=== PATIENT | male | born 1970 | race American Indian/Alaskan Native ===

== ENCOUNTER 2016-10-22 19:05 | Observation (INO) | payer SELFPAY ==
[2016-10-22 20:04] LABS: Eosinophils % (Auto) 1.3 % (0.0-4.3); Hematocrit 39.9 % (35.5-45.6); Hemoglobin 12.9 gm/dl (11.8-15.2); Mean Corpuscular HGB Conc 32 % (32-34); Mean Corpuscular Hemoglobin 27 pg (28-32); Mean Corpuscular Volume 84 fl (84-94); Platelet Count 121 K/mm3 (140-440); Red Blood Count 4.76 M/mm3 (3.65-5.03); Red Cell Distribution Width 15.5 % (13.2-15.2); White Blood Count 6.6 K/mm3 (4.5-11.0)
--- NOTE | 2016-10-22 20:16 | Emergency Department Report ---
ED Chest Pain HPI - General Chief Complaint: Chest Pain Stated Complaint: CHEST PAIN Time Seen by Provider: 10/22/16 20:00 Source: patient, EMS Mode of arrival: Stretcher Limitations: Altered Mental Status - History of Present Illness Initial Comments: Patient is a 46-year-old male with a history of hypertension and asthma and seizure disorder who presents with EMS for chest pain. Patient reports at around 5:30 PM tonight he was sitting and having some intermittent in sharp chest pain which is now dull in character. Patient reports he has had this in the past the last episode was one week ago which resolved on its own. Patient has not seen any provider for this pain. Patient has had a stress test 2-3 years ago but is unable to results of the stress test. Patient does report he had drank 5 beers today and has not taken any of his medications. Otherwise no fevers, headaches, chills, diaphoresis, neck pain, arm pain, shortness of breath , abdominal pain, leg pain, recent travel history, DVT, PE, hemoptysis, trauma, or sick contacts. Patient also reports he cannot have aspirin because it causes seizures patient will not receive aspirin MD Complaint: chest pain -: hour(s) (3 hours) Onset: during rest Pain Location: substernal Pain Radiation: none Severity: moderate Quality: dull Consistency: intermittent Improves With: nothing Worsens With: movement - Related Data On Oral Contraceptives: No (n/a) Allergies Allergy/AdvReac Type Severity Reaction Status Date / Time aspirin Allergy Seizure Verified 10/22/16 19:41 ISSAC score - Issac Score Age > 65: (0) No Aspirin use within the Past 7 Days: (0) No 3 or more CAD Risk Factors: (1) Yes 2 or more Angina events in past 24 hrs: (0) No Known CAD with more than 50% Stenosis: (0) No Elevated Cardiac Markers: (0) No ST Deviation Greater than 0.5mm: (0) No ISSAC Score: 1 ED Review of Systems ROS: Stated complaint: CHEST PAIN Other details as noted in HPI Comment: All other systems reviewed and negative Constitutional: no symptoms reported Eyes: as per HPI ENT: as per HPI Respiratory: no symptoms reported Cardiovascular: as per HPI, chest pain Endocrine: no symptoms reported Gastrointestinal: as per HPI Genitourinary: as per HPI Musculoskeletal: as per HPI Skin: as per HPI Neurological: as per HPI Psychiatric: as per HPI Hematological/Lymphatic: as per HPI ED Past Medical Hx - Past Medical History Previous Medical History?: Yes Hx Hypertension: Yes Hx Seizures: Yes Hx Asthma: Yes - Surgical History Past Surgical History?: No - Social History Smoking Status: Current Every Day Smoker Substance Use Type: Alcohol ED Physical Exam - General Limitations: Other (Poor historian due to ETOh intoxication) General appearance: in no apparent distress, appears intoxicated - Head Head exam: Present: atraumatic, normocephalic - Eye Eye exam: Present: normal appearance Pupils: Present: normal accommodation - ENT ENT exam: Present: normal exam - Neck Neck exam: Present: normal inspection, tenderness, full ROM - Respiratory Respiratory exam: Present: normal lung sounds bilaterally. Absent: respiratory distress, wheezes, rales, rhonchi - Cardiovascular Cardiovascular Exam: Present: regular rate, normal rhythm, bradycardia, normal heart sounds. Absent: systolic murmur, diastolic murmur, rubs - GI/Abdominal GI/Abdominal exam: Present: soft. Absent: distended, tenderness, guarding - Rectal Rectal exam: Present: deferred - Extremities Exam Extremities exam: Present: normal inspection, full ROM, normal capillary refill. Absent: tenderness, pedal edema - Neurological Exam Neurological exam: Present: oriented X3, CN II-XII intact - Skin Skin exam: Present: warm, dry, intact ED Course Vital Signs 10/22/16 10/22/16 10/22/16 19:27 19:30 20:00 Temperature 97.9 F Pulse Rate 78 71 76 Respiratory 16 16 17 Rate Blood Pressure 137/87 129/88 137/85 O2 Sat by Pulse 98 98 98 Oximetry 10/22/16 10/22/16 20:30 21:00 Temperature Pulse Rate 72 75 Respiratory 17 14 Rate Blood Pressure 131/87 126/84 O2 Sat by Pulse 97 98 Oximetry ED Medical Decision Making - Lab Data Result diagrams: 10/22/16 19:51 10/22/16 19:51 - EKG Data -: EKG Interpreted by Me EKG shows normal: sinus rhythm, axis (kinsey;), ST-T waves (TWI in II, III, aVFV3 -V6, mild ST depressions in inferior leads) Rate: normal (75 bpm) - EKG Data When compared to previous EKG there are: previous EKG unavailable Critical care attestation.: If time is entered above; I have spent that time in minutes in the direct care of this critically ill patient, excluding procedure time. ED Disposition Clinical Impression: Chest pain Disposition: OP ADMITTED IP TO THIS HOSP Is pt being admited?: Yes Does the pt Need Aspirin: No Condition: Stable
[2016-10-22 20:30] LABS: Alanine Aminotransferase 16 units/L (7-56); Albumin 4.1 g/dL (3.9-5); Albumin/Globulin Ratio 1.7 %; Alkaline Phosphatase 44 units/L (35-129); BUN/Creatinine Ratio 12.22; Bilirubin,Total 0.7 mg/dL (0.1-1.2); Blood Urea Nitrogen 11 mg/dL (9-20); Calcium 8.8 mg/dL (8.4-10.2); Carbon Dioxide 24 mmol/L (22-30); Glucose 87 mg/dL (75-100); Magnesium 2.2 mg/dL (1.7-2.3); Total Protein 6.5 g/dL (6.3-8.2)
[2016-10-22 20:31] LABS: Anion Gap 18 mmol/L; Chloride 104.6 mmol/L (98-107); Potassium 3.3 mmol/L (3.6-5.0); Sodium 143 mmol/L (137-145)
[2016-10-22 20:35] LABS: Urine Drugs of Abuse Note Disclamer
[2016-10-22 20:46] LABS: Bilirubin,Urine NEG (Negative); Blood,Urine NEG (Negative); Ketones,Urine NEG (Negative); Leukocyte Esterase,Urine NEG (Negative); Nitrite,Urine NEG (Negative); Protein,Urine <15 mg/dL mg/dL (Negative); Urobilinogen,Urine < 2.0 mg/dL (<2.0)
[2016-10-22] MEDS ORDERED: K-DUR PO ONE ×2 (22:25→22:56)
[2016-10-22] MEDS ORDERED: MORPHINE IV ONE (22:26)
[2016-10-22] MEDS ORDERED: TYLENOL PO PRN (22:49)
[2016-10-22] MEDS ORDERED: DULCOLAX PR PRN (22:49)
[2016-10-22] MEDS ORDERED: MILK OF MAGNESIA PO PRN (22:49)
[2016-10-22] MEDS ORDERED: MORPHINE IV PRN (22:49)
[2016-10-22] MEDS ORDERED: ATIVAN IV PRN ×2 (22:49)
[2016-10-22] MEDS ORDERED: ZOFRAN IV PRN (22:49)
[2016-10-22] MEDS ORDERED: PROVENTIL IH PRN (22:49)
[2016-10-22] MEDS ORDERED: ZOFRAN IV ONE (22:49)
[2016-10-22] MEDS ORDERED: SODIUM CHLORIDE FLUSH SYRINGE 10 ML IV PRN (22:49)
--- NOTE | 2016-10-22 22:52 | History and Physical Report ---
History of Present Illness Date of examination: 10/22/16 History of present illness: 46 year old man with history of hypertension, asthma comes to the emergency room for chest pain. Pain is in the anterior chest which he describes as a hurting pain. Pain is intermittment, unable to say how long it last for, intensity 5/10, no radiation, he cannot iodentify exacerabting factors, relieved with morphine. Patient denies, cough, abdominal pain, hematochezia, dysuria, frequency, focal weakness, dysarthria, fever chills, polydipsia polyuria, hot or cold intolerance , easy bruisability, or rash or bleeding from mucosal membrane, rhinorrhea, epistaxis, earache, tinnitus, blurry vision, eye discharge, anxiety, depression. Other review of systems negative PAST SURGICAL HISTORY:None SOCIAL HISTORY:Admits to alcohol, tobacco, refuse to quantify, no drugs FAMILY HISTORY: Hypertension Medications and Allergies Allergies Allergy/AdvReac Type Severity Reaction Status Date / Time aspirin Allergy Seizure Verified 10/22/16 19:41 Exam - Physical Exam Narrative exam: Gen. appearance: Patient lying in bed, no apparent distress HEENT: Normocephalic, atraumatic, pupils equally round and reactive to light, extraocular movement intact, and no sclericterus,. No JVD or thyromegaly or nodule,neck supple, no carotid bruit ,mucous membranes moist, no exudate or erythema Heart: S1, S2, regular rate and rhythm Lungs: Clear to auscultation bilaterally, breathing comfortable Abdomen: Positive bowel sounds, nontender, nondistended, no organomegaly Extremity: No edema, cyanosis, clubbing Skin: No rash, nodules, warm, dry Neuro: Oriented 3, cranial nerves II-12 intact, speech is fluent, motor and sensory intact - Constitutional Vitals: Temp Pulse Resp BP Pulse Ox 97.9 F 75 14 126/84 98 10/22/16 19:27 10/22/16 21:00 10/22/16 21:00 10/22/16 21:00 10/22/16 21:00 Results - Labs CBC & Chem 7: 10/22/16 19:51 10/22/16 19:51 Labs: Abnormal lab results 10/22/16 10/22/16 10/22/16 Range/Units 19:51 19:51 19:51 MCH 27 L (28-32) pg RDW 15.5 H (13.2-15.2) % Plt Count 121 L (140-440) K/mm3 Potassium 3.3 L (3.6-5.0) mmol/L Ur Specific [place] (1.003-1.030) Salicylates < 0.3 L (2.8-20.0) mg/dL Plasma/Serum Alcohol (0-0.07) gm% 10/22/16 10/22/16 Range/Units 19:51 20:30 MCH (28-32) pg RDW (13.2-15.2) % Plt Count (140-440) K/mm3 Potassium (3.6-5.0) mmol/L Ur Specific [place] 1.002 L (1.003-1.030) Salicylates (2.8-20.0) mg/dL Plasma/Serum Alcohol 0.14 H (0-0.07) gm% - Imaging and Cardiology EKG: image reviewed Chest x-ray: image reviewed (t inversion in inf/lat leads) Assessment and Plan Chest pain with abnormal EKG Hypertension Alcohol abuse Thrombocytopenia Admit to medicine Check cardiac enzymes, lipid profile, stress test Start CIWA protocol with IV ativan Start dvt prophalaxis
[2016-10-22] MEDS ORDERED: MORPHINE ONE (22:55)
[2016-10-23 02:26] LABS: Creatine Kinase MB 2.3 ng/mL (0.0-4.0)
[2016-10-23 04:52] LABS: Eosinophils % (Auto) 2.1 % (0.0-4.3); Hematocrit 38.9 % (35.5-45.6); Hemoglobin 12.6 gm/dl (11.8-15.2); Mean Corpuscular HGB Conc 32 % (32-34); Mean Corpuscular Hemoglobin 27 pg (28-32); Mean Corpuscular Volume 84 fl (84-94); Red Blood Count 4.61 M/mm3 (3.65-5.03); Red Cell Distribution Width 15.7 % (13.2-15.2); White Blood Count 7.3 K/mm3 (4.5-11.0)
[2016-10-23 05:12] LABS: Anion Gap 15 mmol/L; BUN/Creatinine Ratio 11.11; Blood Urea Nitrogen 10 mg/dL (9-20); Calcium 8.4 mg/dL (8.4-10.2); Carbon Dioxide 26 mmol/L (22-30); Chloride 107.4 mmol/L (98-107); Glucose 69 mg/dL (75-100); Sodium 144 mmol/L (137-145)
[2016-10-23 06:46] LABS: Platelet Count 130 K/mm3 (140-440)
[2016-10-23 08:09] LABS: Creatine Kinase MB 2.3 ng/mL (0.0-4.0)
[2016-10-23] MEDS ORDERED: LEXISCAN IV ONE ×2 (08:10→08:54)
[2016-10-23] MEDS ORDERED: VITAMIN B-1 PO SCH (10:00)
[2016-10-23] MEDS ORDERED: FOLVITE PO SCH (10:00)
--- NOTE | 2016-10-23 14:21 | Treadmill Report ---
THALLIUM STRESS TEST LEFT VENTRICLE: Left ventricle is at the upper limits of normal in size. Perfusion study demonstrates a moderate size, fixed inferior defect, worse on the resting study. Gated analysis demonstrates well preserved left ventricular systolic function, ejection fraction 56%. CONCLUSION: Moderate sized fixed inferior defect with reverse redistribution may be secondary to diaphragmatic attenuation artifact. Cannot exclude a prior basal inferior infarct. There is no reversible ischemia demonstrated on this study. Clinical correlation is recommended. [facility]# [id number] [place]/NTS
--- NOTE | 2016-10-23 14:36 | Discharge Summary ---
Providers - Providers Date of Admission: 10/22/16 22:31 Date of discharge: 10/23/16 Attending physician: SEUN CAMARGO MD 10/22/16 Consult to Cardiac Rehabilitation [CONS] Routine Reason For Exam: Phase I Primary care physician: ROSSY TORRES MD Hospitalization Reason for admission: chest pain, alcohol abuse Condition: Stable Hospital course: 46 year old man with history of hypertension, asthma comes to the emergency room for chest pain. Pain is in the anterior chest which he describes as a hurting pain. Pain is intermittment, unable to say how long it last for, intensity 5/10, no radiation, he cannot iodentify exacerabting factors, relieved with morphine. Patient was admitted to the floor and serial cardiac enzymes and EKG were normal. This morning stress test was done and negative for ischemia. Patient denies any chest pain after admission. Patient was counseled about cessation of alcohol and smoking. Patient was stable at the time of discharge. Disposition: DISCHARGED TO HOME OR SELFCARE Time spent for discharge: 31 minutes - Discharge Diagnoses (1) Chest pain Status: Acute Qualifiers: Chest pain type: C Core Measure Documentation - Palliative Care Palliative Care/ Comfort Measures: Not Applicable - Core Measures Any of the following diagnoses?: none Exam - Physical Exam Narrative exam: Not in cardiopulmonary distress. The patient appeared well nourished and normally developed. Vital signs as documented. Head exam is unremarkable. No scleral icterus . Neck is without jugular venous distension, thyromegaly, or carotid bruits. Lungs are clear to auscultation. Cardiac exam reveals regular rate and Rhythm. First and second heart sounds normal. No murmurs, rubs or gallops. Abdominal exam reveals normal bowel sounds, no masses, no organomegaly and no aortic enlargement. Extremities are nonedematous and both femoral and pedal pulses are normal. BUSINESS ANALYST MANAGER: Alert and oriented 3. No focal weakness. - Constitutional Vitals: Temp Pulse Resp BP Pulse Ox 97.8 F 100 H 18 138/84 98 10/23/16 12:00 10/23/16 12:00 10/23/16 12:00 10/23/16 12:00 10/23/16 12:00 Plan Activity: no restrictions Weight Bearing Status: Full Weight Bearing Diet: regular Special Instructions: smoking cessation Follow up with: ROSSY TORRES MD [Primary Care Provider] - 7 Days Forms: Discharge Signature Page Prescriptions: Acetaminophen [Acetaminophen TAB] 650 mg PO Q4H PRN #20 tablet PRN Reason: Pain MILD(1-3)/Fever >100.5/GUEVARA Folic Acid [Folvite] 1 mg PO QDAY #30 tablet Thiamine [Vitamin B-1] 100 mg PO DAILY #30 tablet
[2016-10-23 17:36] VITALS: BP 142/95
== END 2016-10-23 18:00 | disposition home or self-care (01) ==
LOC: ED 19:05 → 4A 22:31
PROVIDERS: ADMIT Internal Medicine; ATTEND Internal Medicine
DX: R07.89 Other chest pain (principal); J45.909 Unspecified asthma, uncomplicated; I10 Essential (primary) hypertension; D69.6 Thrombocytopenia, unspecified; R94.31 Abnormal electrocardiogram [ECG] [EKG]; F10.10 Alcohol abuse, uncomplicated
CPT/HCPCS: 36415; 78452; 80048; 80053; 80061; 80307; 81001; 82140; 82550; 82553; 83735; 84443; 84484; 85025; 85379; 93005; 93010; 93017; 96374; 96375; 99285; 99406; A9502; G0378; G0480; J2270; J2405; J2785; 80320

== ENCOUNTER 2016-11-06 02:27 | Inpatient (IN) | payer OTHER ==
[2016-11-06 03:20] LABS: Basophils % (Auto) 0.8 % (0.0-1.8); Eosinophils % (Auto) 2.8 % (0.0-4.3); Hematocrit 41.3 % (35.5-45.6); Hemoglobin 13.4 gm/dl (11.8-15.2); Mean Corpuscular HGB Conc 33 % (32-34); Mean Corpuscular Hemoglobin 27 pg (28-32); Mean Corpuscular Volume 84 fl (84-94); Platelet Count 122 K/mm3 (140-440); Red Blood Count 4.93 M/mm3 (3.65-5.03); Red Cell Distribution Width 15.6 % (13.2-15.2); White Blood Count 7.4 K/mm3 (4.5-11.0)
[2016-11-06 03:47] LABS: Anion Gap 16 mmol/L; Blood Urea Nitrogen 14 mg/dL (9-20); Calcium 8.7 mg/dL (8.4-10.2); Carbon Dioxide 27 mmol/L (22-30); Chloride 104.9 mmol/L (98-107); Glucose 92 mg/dL (75-100); Potassium 4.2 mmol/L (3.6-5.0); Sodium 144 mmol/L (137-145)
[2016-11-06] MEDS ORDERED: NITROSTAT SL PRN (04:11)
[2016-11-06] MEDS ORDERED: PLAVIX PO ONE (04:12)
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
--- NOTE | 2016-11-06 04:58 | History and Physical Report ---
History of Present Illness Date of examination: 11/06/16 Date of admission: 11/06/16 04:11 Chief complaint: Left-sided chest pain and weakness History of present illness: Patient is a 46-year-old -[place] male, history of hypertension and seizure disorder and asthma, was seen in the emergency room with above complaint and was noted to have EKG abnormalities and I was asked to admit the patient for further management. Patient is a poor historian. History is difficult to get and also unreliable. He apparently had a stress test 2 weeks ago which showed moderate sized fixed inferior defect with reverse redistribution but no reversible ischemia. Difficult to adequately tries the nature of the pain. He says it's in the left side of the chest and goes up the left side of the neck and associated with shortness of breath. He says at this time the pain has somewhat eased up. He has seizure disorder but he is unable to tell me the name of the medication he takes. He denies any fever or chills. Denies any nausea or vomitings abdominal pain or diarrhea or melena he denies any dysuria or urinary incontinence. Denies weight loss sore , throat Past History Past Medical History: hypertension, seizures Past Surgical History: No surgical history Social history: smoking, alcohol abuse Family history: hypertension Medications and Allergies Allergies Allergy/AdvReac Type Severity Reaction Status Date / Time aspirin Allergy Seizure Verified 10/22/16 19:41 Home Medications Medication Instructions Recorded Confirmed Last Taken Type Acetaminophen [Acetaminophen TAB] 650 mg PO Q4H PRN #20 tablet 10/23/16 Unknown Rx Folic Acid [Folvite] 1 mg PO QDAY #30 tablet 10/23/16 Unknown Rx Thiamine [Vitamin B-1] 100 mg PO DAILY #30 tablet 10/23/16 Unknown Rx Active Meds: Active Medications Nitroglycerin (Nitrostat) 0.4 mg SL .Q5MIN PRN PRN Reason: Chest Pain Last Admin: 11/06/16 04:42 Dose: 0.4 mg Review of Systems All systems: negative (as stated above in the history of present illness) Exam - Constitutional Vitals: Temp Pulse Resp BP Pulse Ox 98.5 F 76 17 134/95 98 11/06/16 04:06 11/06/16 04:42 11/06/16 04:22 11/06/16 04:42 11/06/16 04:22 General appearance: Present: no acute distress, well-nourished - EENT Eyes: Present: PERRL, EOM intact ENT: hearing intact, clear oral mucosa - Neck Neck: Present: supple, normal ROM. Absent: masses or JVD - Respiratory Respiratory effort: normal Respiratory: bilateral: CTA - Cardiovascular Rhythm: regular Heart Sounds: Present: S1 & S2 - Extremities Extremities: No edema - Abdominal General gastrointestinal: Present: soft, tender (mild epigastric tenderness). Absent: hepatomegaly, splenomegaly Male genitourinary: Present: deferred - Rectal Rectal Exam: deferred - Integumentary Integumentary: Present: clear - Musculoskeletal Musculoskeletal: strength equal bilaterally - Neurologic Neurologic: no focal deficits, moves all extremities Results - Labs CBC & Chem 7: 11/06/16 03:04 11/06/16 03:04 Assessment and Plan - Patient Problems (1) Chest pain Current Visit: No Status: Acute Qualifiers: Chest pain type: C Plan to address problem: Atypical chest pain Troponin normal EKG shows a heart rate of 76 bpm normal sinus rhythm left ventricular hypertrophy by 4 days criteria and nonspecific T-wave changes in inferior leads and V4 to V6 Recent stress test results reviewed Admitted to observation Cardiology consult placed (2) Seizure disorder Current Visit: Yes Status: Chronic Plan to address problem: History is unclear and patient's seizure medication unable to obtain Empirically start the patient on Keppra
[2016-11-06 05:00] LABS: INR 0.88 (0.87-1.13)
[2016-11-06] MEDS: HEPARIN SUB-Q SCH ×2 (05:46→15:52)
--- NOTE | 2016-11-06 08:45 | Consultation ---
History of Present Illness Consult date: 11/06/16 Consult reason: chest pain History of present illness: Patient is a 46-year-old -[place] male, history of hypertension, seizure disorder, and asthma was seen in the emergency room with a complaint of chest pain. Patient is noted to have EKG showing sinus rhythm with twi. Patient is a poor historian and is not cooperative. History is difficult to get and also unreliable. Patient states his chest pain is left sided, radiates to his neck and is associated with SOB. Patient denies orthopnea, pnd, palpitations, dizziness and sycnope. Patient was previously seen here 2 weeks ago for the same chest pain, at which time he had a stress test done. The stress test showed moderate sized fixed inferior defect with reverse redistribution but no reversible ischemia. Past History Past Medical History: hypertension, seizures Past Surgical History: No surgical history Social history: smoking, alcohol abuse Family history: hypertension Medications and Allergies Allergies Allergy/AdvReac Type Severity Reaction Status Date / Time aspirin Allergy Seizure Verified 10/22/16 19:41 Home Medications Medication Instructions Recorded Confirmed Last Taken Type Acetaminophen [Acetaminophen TAB] 650 mg PO Q4H PRN #20 tablet 10/23/16 Unknown Rx Folic Acid [Folvite] 1 mg PO QDAY #30 tablet 10/23/16 11/06/16 Unknown Rx Thiamine [Vitamin B-1] 100 mg PO DAILY #30 tablet 10/23/16 11/06/16 Unknown Rx Active Meds: Active Medications Heparin Sodium (Porcine) (Heparin) 5,000 unit SUB-Q Q8HR KAREN Last Admin: 11/06/16 05:46 Dose: 5,000 unit Levetiracetam (Keppra) 500 mg PO BID KAREN Nitroglycerin (Nitrostat) 0.4 mg SL .Q5MIN PRN PRN Reason: Chest Pain Last Admin: 11/06/16 04:42 Dose: 0.4 mg Pantoprazole Sodium (Protonix) 40 mg PO QDAY KAREN Review of Systems All systems: negative (difficult to obtain as patient is not cooperative and does not want to give history) Physical Examination Vital Signs Temp Pulse Resp BP Pulse Ox 98.4 F 84 18 148/111 99 11/06/16 02:55 11/06/16 02:55 11/06/16 02:55 11/06/16 02:55 11/06/16 02:55 General appearance: no acute distress HEENT: Positive: PERRL, EOMI Neck: Positive: neck supple Cardiac: Positive: Reg Rate and Rhythm, S1/S2 Lungs: Positive: clear to auscultation Neuro: Positive: Grossly Intact Abdomen: Positive: Unremarkable, Soft Extremities: Present: normal Results 11/06/16 03:04 11/06/16 03:04 Coagulation 11/06/16 Range/Units 04:23 PT 11.8 L (12.2-14.9) Sec. INR 0.88 (0.87-1.13) EKG interpretations - Telemetry EKG Rhythm: Sinus Rhythm Repolarization changes or abnormalities: nonspecific abnormality, ST segment, and/or T wave Assessment and Plan (1) Chest pain - atypical chest pain. Troponin negative. CV risk factors include HTN. EKG shows a heart rate of 76 bpm normal sinus rhythm, left ventricular hypertrophy and nonspecific STT-wave changes. Recent stress test shows moderate sized fixed inferior defect with reverse redistribution but no reversible ischemia. Recommend treat with BB, ASA, and statin. As patient now returns with chest pain, it is reasonable to proceed with cardiac cath to define coronary anatomy. However, the patient is not agreeable and does not want any procedures at this time. (2) Seizure disorder - management per primary (3) HTN - maximize medications as needed
--- NOTE | 2016-11-06 09:49 | XRay Report ---
AP CHEST: HISTORY: chest pain AP view of the chest demonstrates a normal mediastinal and cardiac contour with clear lungs and normal bony and soft tissue structures. IMPRESSION: Unremarkable AP chest.
[2016-11-06] MEDS ORDERED: PROTONIX PO SCH (10:00)
[2016-11-06] MEDS ORDERED: LOPRESSOR PO SCH (10:00)
[2016-11-06] MEDS ORDERED: KEPPRA PO SCH (10:00)
[2016-11-06 10:33] VITALS: BP 143/86
--- NOTE | 2016-11-06 18:23 | Discharge Summary ---
Providers - Providers Date of Admission: 11/06/16 04:11 Date of discharge: 11/06/16 Attending physician: BRAXTON NOEL CONSULTS: Cardiology Primary care physician: ROSSY TORRES MD Hospitalization Condition: Good Hospital course: Left AMA before being seen. Disposition: LEFT AGAINST MEDICAL ADVICE Core Measure Documentation - Palliative Care Palliative Care/ Comfort Measures: Not Applicable - Core Measures Any of the following diagnoses?: none Exam - Constitutional Vitals: Temp Pulse Resp BP Pulse Ox 99.4 F 82 18 143/86 99 11/06/16 10:15 11/06/16 10:31 11/06/16 10:15 11/06/16 10:31 11/06/16 10:15 Plan Follow up with: PRIMARY CAREMD [Primary Care Provider] - 3-5 Days Forms: AMA Form
== END 2016-11-06 16:05 | disposition left against medical advice (07) | DRG 313 ==
LOC: ED 02:27 → 4A 04:11
PROVIDERS: ADMIT Internal Medicine; ATTEND Internal Medicine
DX: R07.89 Other chest pain (principal); I10 Essential (primary) hypertension; F10.10 Alcohol abuse, uncomplicated; G40.909 Epilepsy, unspecified, not intractable, without status epilepticus; F17.200 Nicotine dependence, unspecified, uncomplicated; Z88.6 Allergy status to analgesic agent; Z82.49 Family history of ischemic heart disease and other diseases of the circulatory system
CPT/HCPCS: 36415; 71010; 80048; 80320; 82550; 84484; 85025; 85610; 93005; 93010; 94760; 99285; G0480; J1644